=== PATIENT | female | born 1940 | race Caucasian/White ===

== ENCOUNTER 2018-01-14 19:18 | Emergency (ER) | payer MEDICARE, OTHER ==
[~2018-01-14] VITALS: Ht 157.5 cm; Wt 79.4 kg
[2018-01-14 19:38] VITALS: Ht 157.5 cm; Wt 79.4 kg
[2018-01-14 22:26] VITALS: BP 140/95
== END 2018-01-14 22:26 | disposition home or self-care (01) ==
LOC: ED 19:18
DX: S80.01XA Contusion of right knee, initial encounter (principal); E78.00 Pure hypercholesterolemia, unspecified; W01.0XXA Fall on same level from slipping, tripping and stumbling without subsequent striking against object, initial encounter; Y93.89 Activity, other specified; Y92.89 Other specified places as the place of occurrence of the external cause; Y99.8 Other external cause status